=== PATIENT | male | born 1975 | race Caucasian/White ===

== ENCOUNTER → 2017-04-16 | Outpatient (CLI) | payer OTHER ==
[~2017-04-16] MED LIST: IBU800 MG PO; VICODIN 5-3001 EACH PO
[2017-04-16 10:02] LABS: HEMATOCRIT 46.6 % (42.0-52.0); HEMOGLOBIN 16.3 g/dl (14.0-18.0); MEAN CELL VOLUME 94.1 fl (80.0-94.0); MEAN CORPUSCULAR HGB 32.9 pg (27.0-31.0); RED BLOOD COUNT 4.95 10*6/uL (4.50-5.90); RED CELL DISTRI WIDTH 13.7 % (0-14.5); WHITE BLOOD COUNT 8.9 10*3/uL (4.8-10.8)
[2017-04-16 10:07] LABS: ALBUMIN 3.7 gm/dl (3.1-4.5); ALKALINE PHOSPHATASE 64 U/L (45-117); BUN 14 mg/dl (7-24); CHLORIDE 105 mmol/L (98-107); CHOLESTEROL 139 mg/dL (<200); HDL CHOLESTEROL 58 mg/dl (40-60); LDL CHOLESTEROL 69 mg/dL (9-159); POTASSIUM 4.2 mmol/L (3.5-5.1); SGOT/AST 13 IU/L (3-35); SGPT/ALT 32 U/L (12-78); SODIUM 139 mmol/L (136-145); TOTAL PROTEIN 7.2 gm/dL (6.4-8.2); TRIGLYCERIDES 58 mg/dl (<150); VLDL CHOLESTEROL 12 mg/dL (6-40)
== END | disposition home or self-care (01) ==
LOC: LAB 09:17
PROVIDERS: Family Medicine
DX: R05 Cough (principal); E78.00 Pure hypercholesterolemia, unspecified

== ENCOUNTER 2021-03-25 13:02 | Inpatient (IN) | payer OTHER ==
[~2021-03-25] VITALS: Ht 187.9 cm; Wt 104.3 kg
[~2021-03-25 13:02] MED LIST changes: -OMEPRAZOLE40 MG PO
[2021-03-25 13:26] VITALS: BP 113/84
[2021-03-25 14:09] LABS: BASO # 0.1 10*3/uL (0.0-0.1); BASO % 0.8 % (0.0-1.0); EOS # 0.6 10*3/uL (0.0-0.4); EOS % 5.5 % (1.0-4.0); HEMATOCRIT 49.9 % (42.0-52.0); LYMPH # 2.7 10*3/uL (1.3-4.4); LYMPH % 24.4 % (27.0-41.0); MEAN CELL VOLUME 92.4 fl (80.0-94.0); MEAN CORPUSCULAR HGB 30.9 pg (27.0-31.0); MEAN CORPUSCULAR HGB CONC 33.5 g/dl (33.0-37.0); MEAN PLATELET VOLUME 8.4 fl (9.6-12.3); MONO # 1.1 10*3/uL (0.1-1.0); MONO % 10.2 % (3.0-9.0); NEUT # 6.4 10*3/uL (2.3-7.9); NEUT % 58.6 % (47.0-73.0); PLATELET COUNT AUTOMATED 387 10*3/uL (130-400); RED CELL DISTRI WIDTH 13.6 % (0-14.5)
[2021-03-25 14:22] LABS: ACT PARTIAL THROMBO TIME 26.5 SECONDS (20.0-32.1); INTERNATIONAL NORM RATIO 0.9 (2.0-3.5)
[2021-03-25 14:25] LABS: ALBUMIN 3.2 gm/dl (3.1-4.5); ALKALINE PHOSPHATASE 78 U/L (45-117); BUN 11 mg/dl (7-24); CHLORIDE 109 mmol/L (98-107); CREATININE 0.97 mg/dL (0.70-1.30); LIPASE 90 U/L (73-393); POTASSIUM 4.3 mmol/L (3.5-5.1); SGOT/AST 22 IU/L (3-35); SGPT/ALT 51 U/L (12-78); SODIUM 141 mmol/L (136-145); TOTAL PROTEIN 7.2 gm/dL (6.4-8.2)
[2021-03-25 17:12] VITALS: BP 112/72
[2021-03-25] MEDS ORDERED: OMEPRAZOLE40 MG PO (18:35)
[2021-03-25 18:50] VITALS: BP 126/80
[2021-03-25 18:54] VITALS: BP 142/89
[2021-03-26] VITALS (7 sets, daily range): BP systolic 106–113; BP diastolic 60–71
[2021-03-27] VITALS: BP 106/61
[2021-03-27 08:00] VITALS: BP 118/68
[2021-03-27 12:00] VITALS: BP 108/68
[2021-03-27 16:00] VITALS: BP 121/70
[2021-03-27 20:00] VITALS: BP 107/56
[2021-03-28] VITALS: BP 101/59
[2021-03-28 06:31] LABS: INTERNATIONAL NORM RATIO 1.2 (2.0-3.5)
[2021-03-28 08:00] VITALS: BP 139/73
[2021-03-28] MEDS ORDERED: XARE20MG PO (10:22)
[2021-03-28] MEDS ORDERED: XARE15TA PO (10:22)
== END 2021-03-28 11:30 | disposition home or self-care (01) | DRG 175 ==
LOC: ED 13:02 → 4E 16:33 → EDHOLD 16:33 → 4E 03-26 15:22
PROVIDERS: Emergency Medicine; ADMIT Internal Medicine; ATTEND Internal Medicine
DX: I26.99 Other pulmonary embolism without acute cor pulmonale (principal); J96.00 Acute respiratory failure, unspecified whether with hypoxia or hypercapnia; I82.401 Acute embolism and thrombosis of unspecified deep veins of right lower extremity; J43.2 Centrilobular emphysema; E66.9 Obesity, unspecified; K21.00 Gastro-esophageal reflux disease with esophagitis, without bleeding; F41.1 Generalized anxiety disorder; Z71.6 Tobacco abuse counseling

== ENCOUNTER → 2021-03-25 | Outpatient (CLI) | payer OTHER ==
[~2021-03-25] MED LIST changes: +OMEPRAZOLE40 MG PO
== END | disposition home or self-care (01) ==
LOC: US 10:48
PROVIDERS: ATTEND Family Medicine
DX: R59.0 Localized enlarged lymph nodes (principal); R60.0 Localized edema

== ENCOUNTER → 2022-01-01 | Outpatient (CLI) | payer OTHER ==
[~2022-01-01] MED LIST changes: +OMEPRAZOLE40 MG PO; +XARE15TA PO; +XARE20MG PO
== END | disposition home or self-care (01) ==
LOC: CT 08:00
PROVIDERS: ATTEND Specialist
DX: J34.2 Deviated nasal septum (principal); J33.9 Nasal polyp, unspecified